=== PATIENT | male | born 1945 | race Caucasian/White ===

== ENCOUNTER 2018-01-26 12:43 | Observation (INO) | payer OTHER, MEDICARE, BC ==
--- NOTE | 2018-01-26 12:54 | ER Document Report ---
ED Medical Screen (RME) - General Chief Complaint: S/S of Possible Stroke Stated Complaint: VOMITING,CONFUSION,SLURRED SPEECH Time Seen by Provider: 01/26/18 12:52 Notes: pt was talking on phone to daughter about 1 hr ago when she noticed he could not complete sentences. Pt still has trouble articulating. no other deficits appreciated on brief CN/neuro exam. TRAVEL OUTSIDE OF THE [place] IN LAST 30 DAYS: No Physical Exam - Vital signs Vitals: Temp Pulse Resp BP Pulse Ox 97.7 F 74 16 143/86 H 97 01/26/18 12:49 01/26/18 12:49 01/26/18 12:49 01/26/18 12:49 01/26/18 12:49 Course - Vital Signs Vital signs: Temp Pulse Resp BP Pulse Ox 97.7 F 74 16 143/86 H 97 01/26/18 12:49 01/26/18 12:49 01/26/18 12:49 01/26/18 12:49 01/26/18 12:49
--- NOTE | 2018-01-26 13:09 | RADIOLOGY REPORT (SQ) ---
EXAM DESCRIPTION: CT HEAD WITHOUT COMPLETED DATE/TIME: 01/26/2018 12:58 pm REASON FOR STUDY: new onset ams COMPARISON: None. TECHNIQUE: Axial images acquired through the brain without intravenous contrast. Images reviewed wi th bone, brain and subdural windows. Images stored on PACS. All CT scanners at this facility use dose modulation, iterative reconstruction, and/or weight based d osing when appropriate to reduce radiation dose to as low as reasonably achievable (ALARA). [facility]: Dose Right [facility]: CareDose [facility]: Dose Right [facility]: Teradose 4D [facility]: Telligent Systems RADIATION DOSE: mGy. LIMITATIONS: None. FINDINGS: VENTRICLES: Normal size and contour. CEREBRUM: No masses. No hemorrhage. No midline shift. No evidence for acute infarction. Normal gra y/white matter differentiation. No areas of low density in the white matter. CEREBELLUM: No masses. No hemorrhage. No alteration of density. No evidence for acute infarction. EXTRAAXIAL SPACES: No fluid collections. No masses. ORBITS AND GLOBE: No intra- or extraconal masses. Normal contour of globe without masses. CALVARIUM: No fracture. PARANASAL SINUSES: No fluid or mucosal thickening. SOFT TISSUES: No mass or hematoma. OTHER: No other significant finding. IMPRESSION: NORMAL BRAIN CT WITHOUT CONTRAST. EVIDENCE OF ACUTE STROKE: NO. COMMENT: Findings were discussed with the ordering physician at 1304 hours on this date. Quality ID # [id number]: Final reports with documentation of one or more dose reduction techniques (e.g., Au tomated exposure control, adjustment of the mA and/or kV according to patient size, use of iterative reconstruction technique) TECHNICAL DOCUMENTATION: JOB ID: [id number] [employer]- All Rights Reserved Reading location - IP/workstation name: [email or web address]
--- NOTE | 2018-01-26 13:21 | RADIOLOGY REPORT (SQ) ---
EXAM DESCRIPTION: CHEST SINGLE VIEW COMPLETED DATE/TIME: 01/26/2018 1:10 pm REASON FOR STUDY: STROKE ALERT COMPARISON: None. EXAM PARAMETERS: NUMBER OF VIEWS: One view. TECHNIQUE: Single frontal radiographic view of the chest acquired. RADIATION DOSE: NA LIMITATIONS: Demographics mismatch warning displayed FINDINGS: LUNGS AND PLEURA: No opacities, masses or pneumothorax. No pleural effusion. MEDIASTINUM AND HILAR STRUCTURES: No masses. Contour normal. HEART AND VASCULAR STRUCTURES: Heart normal in size. Normal vasculature. BONES: No acute findings. HARDWARE: Sternotomy wires. OTHER: No other significant finding. IMPRESSION: NO ACUTE RADIOGRAPHIC FINDING IN THE CHEST. TECHNICAL DOCUMENTATION: JOB ID: [id number] [employer]- All Rights Reserved Reading location - IP/workstation name: [email or web address]
--- NOTE | 2018-01-26 13:24 | ER Document Report ---
ED General - General Chief Complaint: S/S of Possible Stroke Stated Complaint: VOMITING,CONFUSION,SLURRED SPEECH Time Seen by Provider: 01/26/18 12:52 Mode of Arrival: Ambulatory Information source: Patient, Relative Notes: 72-year-old male history of anxiety previous coronary artery disease presents with an episode of slurred speech and confusion. Patient was noted to be on the phone with his daughter and immediately had episodes which lasted approximately 20 minutes. TRAVEL OUTSIDE OF THE [place] IN LAST 30 DAYS: No - HPI Onset: Just prior to arrival Onset/Duration: Sudden Quality of pain: No pain Severity: Mild Pain Level: Denies Associated symptoms: Other Exacerbated by: Denies Relieved by: Denies Similar symptoms previously: No Recently seen / treated by doctor: No - Related Data Allergies/Adverse Reactions: No Known Allergies Allergy (Unverified 01/26/18 15:48) Past Medical History - Social History Smoking Status: Never Smoker Cigarette use (# per day): No Chew tobacco use (# tins/day): No Smoking Education Provided: No Family History: Reviewed & Not Pertinent Patient has suicidal ideation: No Patient has homicidal ideation: No Renal/ Medical History: Denies: Hx Peritoneal Dialysis Review of Systems - Review of Systems Notes: REVIEW OF SYSTEMS: CONSTITUTIONAL : Denies fever, chills, or sweats. Denies recent illness. EENT: Denies eye, ear, throat, or mouth pain or symptoms. Denies nasal or sinus congestion or discharge. Denies throat, tongue, or mouth swelling or difficulty swallowing. CARDIOVASCULAR: Denies chest pain. Denies palpitations or racing or irregular heart beat. Denies ankle edema. RESPIRATORY: Denies cough, cold, or chest congestion. Denies shortness of breath, difficulty breathing, or wheezing. GASTROINTESTINAL: Denies abdominal pain or distention. Denies nausea, vomiting , or diarrhea. Denies blood in vomitus, stools, or per rectum. Denies black, tarry stools. Denies constipation. GENITOURINARY: Denies difficulty urinating, painful urination, burning, frequency, blood in urine, or discharge. MUSCULOSKELETAL: Denies back or neck pain or stiffness. Denies joint pain or swelling. SKIN: Denies rash, lesions or sores. HEMATOLOGIC : Denies easy bruising or bleeding. LYMPHATIC: Denies swollen, enlarged glands. NEUROLOGICAL: Admits to slurred speech PSYCHIATRIC: Denies anxiety or stress. Denies depression, suicidal ideation, or homicidal ideation. ALL OTHER SYSTEMS REVIEWED AND NEGATIVE. Dictation was performed using [employer] voice recognition software PHYSICAL EXAMINATION: GENERAL: Well-appearing, well-nourished and in no acute distress. HEAD: Atraumatic, normocephalic. EYES: Pupils equal round and reactive to light, extraocular movements intact, sclera anicteric, conjunctiva are normal. ENT: Nares patent, oropharynx clear without exudates. Moist mucous membranes. NECK: Normal range of motion, supple without lymphadenopathy LUNGS: Breath sounds clear to auscultation bilaterally and equal. No wheezes rales or rhonchi. HEART: Regular rate and rhythm without murmurs ABDOMEN: Soft, nontender, nondistended abdomen. No guarding, no rebound. No masses appreciated. Musculoskeletal: Normal range of motion, no pitting or edema. No cyanosis. NEUROLOGICAL: Cranial nerves grossly intact. Normal speech, normal gait. Normal sensory, motor exams PSYCH: Normal mood, normal affect. SKIN: Warm, Dry, normal turgor, no rashes or lesions noted. Physical Exam - Vital signs Vitals: Temp Pulse Resp BP Pulse Ox 97.7 F 74 16 143/86 H 97 01/26/18 12:49 01/26/18 12:49 01/26/18 12:49 01/26/18 12:49 01/26/18 12:49 Course - Re-evaluation Re-evalutation: 01/26/18 16:49 Patient's presentation I believe is more consistent with a panic attack given that intermittently he will have slurred speech when he is getting anxious, however I cannot rule out a TIA at this time patient will be observed to the hospitalist service - Vital Signs Vital signs: Temp Pulse Resp BP Pulse Ox 97.7 F 68 14 159/89 H 98 01/26/18 12:49 01/26/18 13:14 01/26/18 13:14 01/26/18 13:14 01/26/18 13:14 - Laboratory Result Diagrams: 01/26/18 13:07 01/26/18 13:07 Laboratory results interpreted by me: 01/26/18 01/26/18 13:07 13:07 MCV 99 H MCH 34.0 H Glucose 112 H - Diagnostic Test Radiology reviewed: Image reviewed - no acute abnormality , report given to patient, Reports reviewed - EKG Interpretation by Me EKG shows normal: Sinus rhythm, [place], Intervals, QRS Complexes Discharge - Discharge Clinical Impression: Anxiety TIA (transient ischemic attack) Qualifiers: Transient cerebral ischemia type: unspecified Qualified Code(s): G45.9 - Transient cerebral ischemic attack, unspecified Condition: Stable Disposition: ADMITTED OBSERVATION Admitting Provider: Hospitalist Unit Admitted: [facility]
--- NOTE | 2018-01-26 13:25 | EKG REPORT ---
SEVERITY:- NORMAL ECG - SINUS RHYTHM : Confirmed by: Martin Hummel MD 26-Jan-2018 13:24:49
[2018-01-26 13:26] LABS: ABSOLUTE LYMPHOCYTES (AUTO) 2.1 10^3/uL (0.5-4.7); ABSOLUTE MONOCYTES (AUTO) 0.5 10^3/uL (0.1-1.4); ABSOLUTE NEUT (AUTO) 5.1 10^3/uL (1.7-8.2); BASOPHILS % (AUTO) 0.5 % (0-2); EOSINOPHILS % (AUTO) 0.2 % (0-6); HEMATOCRIT 44.2 % (37.9-51.0); HEMOGLOBIN 15.1 g/dL (13.5-17.0); LYMPHOCYTES % (AUTO) 26.7 % (13-45); MEAN CORPUSCULAR HGB CONC 34.2 g/dL (32.0-36.0); MEAN CORPUSCULAR VOLUME 99 fl (80-97); PLATELET COUNT 198 10^3/uL (150-450); RED BLOOD COUNT 4.46 10^6/uL (4.35-5.55); RED CELL DISTRIBUTION WIDTH 12.9 % (11.5-14.0); SEGMENTED NEUTROPHILS % (AUTO) 66.6 % (42-78); TOTAL CELLS COUNTED % (AUTO) 100 %; WHITE BLOOD COUNT 7.7 10^3/uL (4.0-10.5)
[2018-01-26 13:37] LABS: ALANINE AMINOTRANSFERASE 57 U/L (21-72); ALBUMIN 4.1 g/dL (3.5-5.0); ALKALINE PHOSPHATASE 61 U/L (38-126); ANION GAP 9 (5-19); ASPARTATE AMINO TRANSFERASE 33 U/L (17-59); BILIRUBIN,DIRECT 0.2 mg/dL (0.0-0.4); BILIRUBIN,TOTAL 0.7 mg/dL (0.2-1.3); BLOOD UREA NITROGEN 15 mg/dL (7-20); CALCIUM 9.1 mg/dL (8.4-10.2); CARBON DIOXIDE 26 mmol/L (22-30); CHLORIDE 104 mmol/L (98-107); GLUCOSE 112 mg/dL (75-110); POTASSIUM 4.2 mmol/L (3.6-5.0); SODIUM 139.4 mmol/L (137-145); TOTAL PROTEIN 6.4 g/dL (6.3-8.2)
[2018-01-26] MEDS ORDERED: TEMAZEPAM 15 MG CAPSULE PO PRN (17:32)
[2018-01-26] MEDS ORDERED: ONDANSETRON HCL INJ/PF 4 MG/2 ML SDV IV PRN (17:32)
[2018-01-26] MEDS ORDERED: DOCUSATE SODIUM 100 MG CAPSULE PO PRN (17:32)
[2018-01-26] MEDS ORDERED: ACETAMINOPHEN 325 MG TABLET PO PRN (17:32)
--- NOTE | 2018-01-26 18:09 | PDOC H&P ---
History of Present Illness Admission Date/PCP: 01/26/18 14:42 Primary CARE physician: Dr. Gamez in [place] History of Present Illness: GAGE OLIVAS is a 72 year old male who earlier today was talking to his daughter on the phone. He abruptly developed garbled speech and became quite confused. He could not finish his conversation with his daughter. By the time his daughter arrived at the house about 20 minutes later his symptoms were resolving. He was brought to the emergency room for further evaluation. The patient has an extensive history of coronary artery disease. He had an TX in 2004 with stent placement. He continued to have problems and in 2005 underwent a CABG. Postoperatively he developed atrial fibrillation but later had an ablation. In addition he has known hypertension, hyperlipidemia, borderline diabetes and anxiety. Past Medical History Cardiac Medical History: Reports: Atrial Fibrillation, Coronary Artery Disease, Myocardial Infarction, Hyperlipidema, Hypertension Cardiac History Note: CABG in 2005. I am not sure how many vessels were bypassed. He cannot recall Pulmonary Medical History: Denies: Asthma, Chronic Obstructive Pulmonary Disease (COPD), Pneumonia, Respiratory Failure EENT Medical History: Reports: Eyes - Patient had shrapnel in his eye from the [place] War. Surgery was performe Neurological Medical History: Reports: None, Other - Other than his new strokelike symptoms today. Endocrine Medical History: Reports: Diabetes Mellitus Type 2 - He has diet controlled diabetes. Currently not on any medication, Other Renal/ Medical History: Reports: None Denies: Chronic Kidney Disease, Nephrolithiasis Malignancy Medical History: Reports: None GI Medical History: Reports: None Musculoskeltal Medical History: Reports: None Skin Medical History: Reports: None Psychiatric Medical History: Reports: General Anxiety Disorder Denies: Alcohol Dependency, Bipolar Disorder, Depression, Substance Abuse, Tobacco Dependency Traumatic Medical History: Reports: Other - Shrapnel to the eye Hematology: Reports: None Denies: Anemia Infectious Medical History: Reports: None Past Surgical History Past Surgical History: Reports: Cardiac Catheterization, Coronary Artery Bypass Graft, Coronary Stent, Other - Cardiac ablation and right eye surgery. L4-L5 discectomy and fusion Social History Smoking Status: Never Smoker Frequency of Alcohol Use: Social Drugs: None Hx Prescription Drug Abuse: No - Advance Directive Resuscitation Status: Full Code Family History Family History: CAD, CVA, DM, Hypertension Parental Family History Reviewed: Yes Children Family History Reviewed: Yes Sibling(s) Family History Reviewed.: Yes Medication/Allergy Home Medications: Aspirin [Aspirin EC] 81 mg PO DAILY 01/26/18 Diazepam [Valium 5 mg Tablet] 10 mg PO BIDP PRN 01/26/18 Lisinopril [Prinivil 10 mg Tablet] 10 mg PO DAILY 01/26/18 Metoprolol Tartrate [Lopressor 50 mg Tablet] 50 mg PO DAILY 01/26/18 Rosuvastatin Calcium [Crestor 5 mg Tablet] 2.5 mg PO Q2D 01/26/18 Allergies/Adverse Reactions: No Known Allergies Allergy (Unverified 01/26/18 15:48) Review of Systems Constitutional: PRESENT: chills, fatigue, weakness. ABSENT: fever(s), headache( s), night sweats, weight gain, weight loss Eyes: ABSENT: visual disturbances Ears: ABSENT: hearing changes Nose, Mouth, and Throat: ABSENT: headache(s), sore throat, vertigo Cardiovascular: PRESENT: chest pain - Fairly severe chest pain on Wednesday associated with vomiting. Gastrointestinal: PRESENT: abdominal pain, nausea, vomiting - The patient had chest pain and abdominal pain associated with nausea and vomiting on Wednesday and Wednesday. This is since resolved. He did not have diarrhea. He did notice one black stool however he had taken some Pepto-Bismol Genitourinary: PRESENT: nocturia. ABSENT: difficulty urinating, dysuria, hematuria Musculoskeletal: ABSENT: back pain, joint swelling, muscle weakness - Is Integumentary: ABSENT: diaphoresis Neurological: PRESENT: abnormal speech, confusion - Garbled speech and expressive aphasia associated with confusion that is since totally resolved. Psychiatric: PRESENT: anxiety, depression Endocrine: ABSENT: cold intolerance, heat intolerance, polydipsia, polyuria Hematologic/Lymphatic: ABSENT: easy bleeding, easy bruising Allergic/Immunologic: ABSENT: seasonal rhinorrhea Physical Exam Vital Signs: Temp Pulse Resp BP Pulse Ox 97.8 F 70 19 121/63 99 01/26/18 16:50 01/26/18 16:50 01/26/18 16:50 01/26/18 16:50 01/26/18 16:50 Intake & Output 01/25/18 01/26/18 01/27/18 06:59 06:59 06:59 Weight 80.1 kg General appearance: PRESENT: no acute distress, cooperative, well-developed, well-nourished Head exam: PRESENT: atraumatic, normocephalic Eye exam: PRESENT: conjunctiva pink, EOMI, PERRLA. ABSENT: scleral icterus Ear exam: PRESENT: normal external ear exam Mouth exam: PRESENT: moist, tongue midline Neck exam: ABSENT: carotid bruit, JVD, lymphadenopathy, thyromegaly Respiratory exam: PRESENT: clear to auscultation vandana. ABSENT: rales, rhonchi, wheezes Cardiovascular exam: PRESENT: RRR. ABSENT: diastolic murmur, rubs, systolic murmur Pulses: PRESENT: normal dorsalis pedis pul Vascular exam: PRESENT: normal capillary refill GI/Abdominal exam: PRESENT: normal bowel sounds, soft. ABSENT: distended, guarding, mass, organolmegaly, rebound, tenderness Rectal exam: PRESENT: deferred, black stool Extremities exam: PRESENT: full ROM. ABSENT: calf tenderness, clubbing, pedal edema Musculoskeletal exam: PRESENT: ambulatory, full ROM Neurological exam: PRESENT: alert, awake, oriented to person, oriented to place , oriented to time, oriented to situation, CN II-XII grossly intact. ABSENT: motor sensory deficit Psychiatric exam: PRESENT: anxious, appropriate affect. ABSENT: flat affect, homicidal ideation, suicidal ideation Skin exam: PRESENT: dry, intact, warm. ABSENT: cyanosis, rash Results Impressions: Chest X-Ray 01/26/18 00:00 IMPRESSION: NO ACUTE RADIOGRAPHIC FINDING IN THE CHEST. Head CT 01/26/18 12:52 IMPRESSION: NORMAL BRAIN CT WITHOUT CONTRAST. EVIDENCE OF ACUTE STROKE: NO. Assessment & Plan - Diagnosis (1) TIA (transient ischemic attack) Qualifiers: Transient cerebral ischemia type: unspecified Qualified Code(s): G45.9 - Transient cerebral ischemic attack, unspecified Is this a current diagnosis for this admission?: Yes Plan: I am going to increase his aspirin to 325 mg. We are going to start atorvastatin at 80 mg daily. we will do a full stroke workup. The patient clearly has atherosclerotic disease with a history of severe artery disease and CABG in the past. I am going to obtain an MRI of the brain, carotid Dopplers as well as a 2D echocardiogram. I suspect this is a TIA as his symptoms are totally resolved. Per protocol he will be evaluated by PT, OT and speech. (2) Coronary artery disease Is this a current diagnosis for this admission?: Yes Plan: The patient is status post CABG in 2005. He is on appropriate cardiac medications. He did have an episode on Wednesday and Wednesday rather severe chest pain associated with nausea and vomiting.He also was having abdominal pain at this time as well. I am going to trend his serial troponins overnight. We will keep him on a remote monitor. I will have cardiology take a look at him as well. (3) Atrial fibrillation Is this a current diagnosis for this admission?: Yes Plan: Patient had a history of atrial fibrillation in the status post ablation at some point after his CABG in 2005. He has had no further issues since that time. The patient did have a TIA today. We will keep him on a remote monitor. On exam today he sounds a little irregular. EKG at the time of admission revealed a sinus rhythm. He could be having PVCs. Currently not on any anticoagulation. I will get an EKG in the morning. (4) Hypertension Is this a current diagnosis for this admission?: Yes Plan: Currently well controlled. Continue lisinopril (5) Hyperlipidemia Is this a current diagnosis for this admission?: Yes Plan: He has been on low-dose Crestor. I am going to place him on high-dose atorvastatin at 80 mg daily for now. I will get a lipid panel in the morning. (6) Diabetes mellitus Is this a current diagnosis for this admission?: Yes Plan: He has diet controlled diabetes mellitus. I will get a hemoglobin A1c in the morning (7) Anxiety Is this a current diagnosis for this admission?: Yes Plan: Anxiety the patient does admit to increased anxiety and stress. He will continue his home dose of Valium. (8) Full code status Is this a current diagnosis for this admission?: Yes - Time Time Spent: 50 to 70 Minutes - Inpatient Certification Medical Necessity: Other - The patient's symptoms have already resolved. I suspect that his hospitalization will span less than 2 midnights. He will be placed in observation and hopefully can be discharged tomorrow afternoon
[2018-01-26] MEDS ORDERED: ENOXAPARIN SODIUM INJ 40 MG/0.4 ML DISP.SYRIN SUBCUT ONE (19:00)
--- NOTE | 2018-01-26 19:49 | RADIOLOGY REPORT (SQ) ---
EXAM DESCRIPTION: MRI HEAD WITHOUT COMPLETED DATE/TIME: 01/26/2018 7:27 pm REASON FOR STUDY: tia, rule out cva COMPARISON: CT dated 01/26/2018. TECHNIQUE: Multiplanar imaging includes non-contrasted T1, T2, FLAIR, and Diffusion with ADC map seq uences. Images stored on PACS. LIMITATIONS: None. FINDINGS: ANATOMY: No anomalies. Normal vascular flow voids. Pituitary fossa normal. CSF SPACES: Normal in size and contour. No hemorrhage. CEREBRUM: A few high-signal intensity lesions scattered throughout the white matter on FLAIR imaging with distribution suggesting chronic micro-vascular ischemic change. Sulci and gyri normal in size a nd contour. No evidence of hemorrhage, mass or extraaxial fluid collection. POSTERIOR FOSSA: No signal alteration. No hemorrhage. No edema, masses or mass effect. Internal lalitha tory canals, cerebello-pontine angles, mastoids normal. DIFFUSION: Questionable small focal areas of restricted diffusion on the cortex of the left insular c ortex and left temporal lobe (series 4, image 16). ORBITS: No masses. Globes normal. PARANASAL SINUSES: No fluid levels. Mucosa normal. OTHER: No other significant finding. IMPRESSION: MINIMAL MICROVASCULAR ISCHEMIC CHANGE. POSSIBLE SMALL AREAS OF RESTRICTED DIFFUSION IN THE LEFT INSULAR CORTEX AND LEFT TEMPORAL LOBE CORTEX. DIFFICULT TO DETERMINE IF THIS IS ARTIFACT OR COULD BE AREAS OF RECENT INFARCTION. EVIDENCE OF ACUTE STROKE: POSSIBLE. LEFT MCA TECHNICAL DOCUMENTATION: JOB ID: [id number] [employer]- All Rights Reserved Reading location - IP/workstation name: [email or web address]
[2018-01-26] MEDS ORDERED: MAG HYDROX/AL HYDROX/SIMETH SUSP 30 ML UDCUP PO PRN (20:34)
[2018-01-26 20:49] LABS: CREATINE KINASE MB 0.56 ng/mL (<4.55)
[2018-01-26 20:52] LABS: TROPONIN I < 0.012 ng/mL
[2018-01-26] MEDS ORDERED: ATORVASTATIN CALCIUM 80 MG TABLET PO SCH (22:00)
[2018-01-27 02:52] LABS: ABSOLUTE BASOPHILS # (AUTO) 0.1 10^3/uL (0.0-0.2); ABSOLUTE LYMPHOCYTES (AUTO) 2.3 10^3/uL (0.5-4.7); ABSOLUTE MONOCYTES (AUTO) 0.6 10^3/uL (0.1-1.4); ABSOLUTE NEUT (AUTO) 4.1 10^3/uL (1.7-8.2); BASOPHILS % (AUTO) 0.8 % (0-2); EOSINOPHILS % (AUTO) 0.6 % (0-6); HEMATOCRIT 42.1 % (37.9-51.0); HEMOGLOBIN 14.5 g/dL (13.5-17.0); LYMPHOCYTES % (AUTO) 32.2 % (13-45); MEAN CORPUSCULAR HEMOGLOBIN 34.3 pg (27.0-33.4); MEAN CORPUSCULAR HGB CONC 34.5 g/dL (32.0-36.0); MEAN CORPUSCULAR VOLUME 99 fl (80-97); MONOCYTES % (AUTO) 8.3 % (3-13); PLATELET COUNT 159 10^3/uL (150-450); RED BLOOD COUNT 4.24 10^6/uL (4.35-5.55); RED CELL DISTRIBUTION WIDTH 12.9 % (11.5-14.0); SEGMENTED NEUTROPHILS % (AUTO) 58.1 % (42-78); TOTAL CELLS COUNTED % (AUTO) 100 %; WHITE BLOOD COUNT 7.1 10^3/uL (4.0-10.5)
[2018-01-27 03:03] LABS: APPEARANCE,URINE CLEAR; BILIRUBIN,URINE NEGATIVE (NEGATIVE); COLOR,URINE YELLOW; GLUCOSE, URINE NEGATIVE (NEGATIVE); KETONES,URINE NEGATIVE (NEGATIVE); LEUKOCYTE ESTERASE,URINE NEGATIVE (NEGATIVE); NITRITE,URINE NEGATIVE (NEGATIVE); PROTEIN,URINE NEGATIVE (NEGATIVE); URINE SPECIFIC GRAVITY 1.008
[2018-01-27 03:05] LABS: ANION GAP 7 (5-19); BLOOD UREA NITROGEN 13 mg/dL (7-20); CALCIUM 8.8 mg/dL (8.4-10.2); CARBON DIOXIDE 26 mmol/L (22-30); CHLORIDE 106 mmol/L (98-107); CHOLESTEROL 106.66 mg/dL (0-200); CREATINE KINASE 34 U/L (55-170); GLUCOSE 104 mg/dL (75-110); SODIUM 138.9 mmol/L (137-145); TRIGLYCERIDES 183 mg/dL (<150)
[2018-01-27 03:15] LABS: TROPONIN I < 0.012 ng/mL
[2018-01-27 03:16] LABS: DIRECT LDL 53 mg/dL (<100)
[2018-01-27 03:19] LABS: VLDL CHOLESTEROL 36.6 mg/dL (10-31)
[2018-01-27] MEDS ORDERED: LANSOPRAZOLE 30 MG TAB.RAP.DR PO SCH (06:00)
--- NOTE | 2018-01-27 07:26 | EKG REPORT ---
SEVERITY:- NORMAL ECG - SINUS RHYTHM : Confirmed by: Martin Hummel MD 27-Jan-2018 07:26:25
[2018-01-27] MEDS ORDERED: LISINOPRIL 10 MG TABLET PO SCH (10:00)
[2018-01-27] MEDS ORDERED: ENOXAPARIN SODIUM INJ 40 MG/0.4 ML DISP.SYRIN SUBCUT SCH (10:00)
[2018-01-27] MEDS ORDERED: ASPIRIN 325 MG TABLET, ENT COATED PO SCH ×2 (10:00→15:08)
[2018-01-27] MEDS ORDERED: METOPROLOL TARTRATE 50 MG TABLET PO SCH (10:00)
[2018-01-27 10:55] LABS: CREATINE KINASE MB 0.35 ng/mL (<4.55)
[2018-01-27 10:57] LABS: TROPONIN I < 0.012 ng/mL
--- NOTE | 2018-01-27 14:31 | RADIOLOGY REPORT (SQ) ---
EXAM DESCRIPTION: CAROTID DOPPLER COMPLETED DATE/TIME: 01/27/2018 2:02 pm REASON FOR STUDY: TIA/CVA, hx CAD COMPARISON: None. TECHNIQUE: Grayscale ultrasound, Doppler velocity and spectra, and color Doppler images acquired of the extra-cranial carotid and vertebral arteries. Images stored on PACS. LIMITATIONS: None. FINDINGS: RIGHT CAROTID CCA Velocities: Within normal limits. ICA Velocities Peak systolic 0.87 m/s. End diastolic 0.31 m/s. Proximal ICA/CCA peak systolic ratio 1.1. Spectra normal. No significant plaque. LEFT CAROTID CCA Velocities: Within normal limits. ICA Velocities Peak systolic 0.82 m/s. End diastolic 0.33 m/s. Proximal ICA/CCA peak systolic ratio 0.8. Spectra normal. No significant plaque. VERTEBRAL ARTERIES: Antegrade flow. Normal waveforms. SUBCLAVIAN ARTERIES: No finding. OTHER: No other significant finding. IMPRESSION: NO HEMODYNAMICALLY SIGNIFICANT STENOSIS. COMMENT: Quality ID #[id number]: Velocity criteria are extrapolated from the diameter data as defined by t he Society of Radiologists in Ultrasound Consensus Conference. Radiology 2003: 229; 340-346. TECHNICAL DOCUMENTATION: JOB ID: [id number]- All Rights Reserved Reading location - IP/workstation name: [email or web address]
--- NOTE | 2018-01-27 15:06 | PDOC CONSULTATION ---
Consultation Consult Date: 01/26/18 Attending physician:: HUGO PIEDRA Consult reason:: Coronary artery disease History of Present Illness Admission Date/PCP: 01/26/18 14:42 Patient complains of: Coronary artery disease, speech difficulty History of Present Illness: GAGE OLIVAS is a 72 year old male who earlier today was talking to his daughter on the phone. He abruptly developed garbled speech and became quite confused. He could not finish his conversation with his daughter. By the time his daughter arrived at the house about 20 minutes later his symptoms were resolving. He was brought to the emergency room for further evaluation. The patient has an extensive history of coronary artery disease. He had an GA in 2004 with stent placement. He continued to have problems and in 2005 underwent a CABG. Postoperatively he developed atrial fibrillation but later had an ablation. In addition he has known hypertension, hyperlipidemia, borderline diabetes and anxiety. This history was reviewed and confirmed. Past Medical History Cardiac Medical History: Reports: Atrial Fibrillation, Coronary Artery Disease, Myocardial Infarction, Hyperlipidema, Hypertension Pulmonary Medical History: Denies: Asthma, Chronic Obstructive Pulmonary Disease (COPD), Pneumonia, Respiratory Failure EENT Medical History: Reports: Eyes - Patient had shrapnel in his eye from the [place] War. Surgery was performe Neurological Medical History: Reports: None, Other - Other than his new strokelike symptoms today. Endocrine Medical History: Reports: Diabetes Mellitus Type 2 - He has diet controlled diabetes. Currently not on any medication, Other Renal/ Medical History: Reports: None Denies: Chronic Kidney Disease, Nephrolithiasis Malignancy Medical History: Reports: None GI Medical History: Reports: None Musculoskeltal Medical History: Reports: None Skin Medical History: Reports: None Psychiatric Medical History: Reports: General Anxiety Disorder Denies: Alcohol Dependency, Bipolar Disorder, Depression, Substance Abuse, Tobacco Dependency Traumatic Medical History: Reports: Other - Shrapnel to the eye Hematology: Reports: None Denies: Anemia Infectious Medical History: Reports: None Past Surgical History Past Surgical History: Reports: Cardiac Catheterization, Coronary Artery Bypass Graft, Coronary Stent, Other - Cardiac ablation and right eye surgery. L4-L5 discectomy and fusion Social History Information Source: Patient Smoking Status: Never Smoker Frequency of Alcohol Use: Social Drugs: None Hx Prescription Drug Abuse: No - Advance Directive Resuscitation Status: Full Code Surrogate healthcare decision maker:: Patient's daughter in [place] is the surrogate decision-maker Family History Family History: CAD, CVA, DM, Hypertension Parental Family History Reviewed: Yes Children Family History Reviewed: Yes Sibling(s) Family History Reviewed.: Yes Medication/Allergy Home Medications: Aspirin [Aspirin EC] 81 mg PO DAILY 01/26/18 Diazepam [Valium 5 mg Tablet] 10 mg PO BIDP PRN 01/26/18 Lisinopril [Prinivil 10 mg Tablet] 10 mg PO DAILY 01/26/18 Metoprolol Tartrate [Lopressor 50 mg Tablet] 50 mg PO DAILY 01/26/18 Apixaban [Eliquis 5 mg Tablet] 5 mg PO Q12A #60 tablet 01/27/18 Atorvastatin Calcium [Lipitor 80 mg Tablet] 80 mg PO QHS #30 tablet 01/27/18 Allergies/Adverse Reactions: No Known Allergies Allergy (Unverified 01/26/18 15:48) Review of Systems Review of Systems: Please see history of present illness and past medical history as wall. Constitutional: No fever or chills reported. Head : No recent chronic headaches, recent head injury. Eyes: No recent eye pain, diplopia, redness, discharge, acute visual changes. Ears: No recent chronic ear pain, acute hearing loss, ear discharge. Oral cavity: No recent ulcerations, bleeding, oral cavity discomfort. Neck: No recent acute neck pain reported. Hematologic: No recent easy bruising or bleeding or hematologic malignancy reported. Lymphatic: No recent lymphatic malignancy, chronic lymphadenopathy reported yet Cardiovascular system review: See history of present illness. Respiratory system review: No recent chronic cough, hemoptysis, blood clots in the lungs reported. Mild Shortness of breath on exertion Gastrointestinal system review: Negative for any recent acute or chronic abdominal pain, hematemesis, melena, recent change in bowel habits. Genitourinary system review: No recent acute or chronic hematuria, flank pain, UTI etc. reported. Skin system review: Negative for any recent abnormal bruising, no rash, no pruritus reported. Neurologic: No prior history of strokes, mini strokes, seizure disorder. Admitted with possible TIA versus stroke Psychologic: No history of major psychosis or major depression reported. Musculoskeletal: Minor aches and pains reported. No acute joint swelling reported. Endocrine: No recent polyuria, polydipsia, recent heat or cold intolerance. Physical Exam Vital Signs: Temp Pulse Resp BP Pulse Ox 97.8 F 69 19 121/63 99 01/26/18 16:50 01/26/18 18:00 01/26/18 16:50 01/26/18 16:50 01/26/18 16:50 Intake & Output 01/25/18 01/26/18 01/27/18 06:59 06:59 06:59 Intake Total 10 Balance 10 Weight 80.1 kg Exam: GENERAL: well-nourished and in no acute distress. Alert and oriented x3 HEAD: Atraumatic, normocephalic. EYES: Pupils equal round and reactive to light, extraocular movements intact, sclera anicteric, conjunctiva are normal. ENT: TMs normal, nares patent, oropharynx clear without exudates. Moist mucous membranes. No oral ulcerations or bleeding gums noted NECK: supple without lymphadenopathy. Trachea is central. No cervical or axillary lymphadenopathy noted. Carotids are 2+, JVD WNL LUNGS: Respiration seems nonlabored, no significant accessory muscle action noted. Breath sounds clear to auscultation bilaterally and equal noted. No wheezes rales or rhonchi noted. No significant dullness noted on percussion. CHEST: Palpation of the chest wall shows no significant chest wall tenderness. No other significant abnormalities noted. 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 ABDOMEN: Soft, no significant tenderness appreciated, normoactive bowel sounds. No guarding, no rebound. No rigidity noted . No masses appreciated. EXTREMITIES: Pedal pulses are 1-2+, no calf tenderness noted. No clubbing or cyanosis. Negative pedal edema noted NEUROLOGICAL: Focused neurological exam showed no significant neurologic deficit. Normal speech, no focal weakness appreciated. PSYCH: Normal mood, normal affect. Judgment and insight within normal limits. SKIN: No significant ecchymosis, skin is noted to be warm. MUSCULOSKELETAL EXAM: No significant acute joint swelling noted. Results EKG Comments: Sinus rhythm, no acute ST-T wave changes noted Impressions: Chest X-Ray 01/26/18 00:00 IMPRESSION: NO ACUTE RADIOGRAPHIC FINDING IN THE CHEST. Head MRI 01/26/18 00:00 IMPRESSION: MINIMAL MICROVASCULAR ISCHEMIC CHANGE. POSSIBLE SMALL AREAS OF RESTRICTED DIFFUSION IN THE LEFT INSULAR CORTEX AND LEFT TEMPORAL LOBE CORTEX. DIFFICULT TO DETERMINE IF THIS IS ARTIFACT OR COULD BE AREAS OF RECENT INFARCTION. EVIDENCE OF ACUTE STROKE: POSSIBLE. LEFT MCA Head CT 01/26/18 12:52 IMPRESSION: NORMAL BRAIN CT WITHOUT CONTRAST. EVIDENCE OF ACUTE STROKE: NO. Assessment & Plan - Diagnosis (1) Cerebrovascular accident (CVA) Qualifiers: CVA mechanism: unspecified Qualified Code(s): I63.9 - Cerebral infarction, unspecified Is this a current diagnosis for this admission?: Yes (2) TIA (transient ischemic attack) Qualifiers: Transient cerebral ischemia type: unspecified Qualified Code(s): G45.9 - Transient cerebral ischemic attack, unspecified Is this a current diagnosis for this admission?: Yes (3) Anxiety Is this a current diagnosis for this admission?: Yes (4) Atrial fibrillation Qualifiers: Atrial fibrillation type: unspecified Qualified Code(s): I48.91 - Unspecified atrial fibrillation Is this a current diagnosis for this admission?: Yes (5) Coronary artery disease Qualifiers: Coronary Disease-Associated Artery/Lesion type: unspecified vessel or lesion type [place] vs. transplanted heart: [place] heart Associated angina: angina presence unspecified Qualified Code(s): I25.10 - Atherosclerotic heart disease of [place] coronary artery without angina pectoris Is this a current diagnosis for this admission?: Yes (6) Diabetes mellitus Qualifiers: Diabetes mellitus type: type 2 Diabetes mellitus long term care administrator insulin use: unspecified long term care administrator insulin use status Diabetes mellitus complication status : with unspecified complications Qualified Code(s): E11.8 - Type 2 diabetes mellitus with unspecified complications Is this a current diagnosis for this admission?: Yes (7) Hyperlipidemia Qualifiers: Hyperlipidemia type: unspecified Qualified Code(s): E78.5 - Hyperlipidemia , unspecified Is this a current diagnosis for this admission?: Yes (8) Hypertension Qualifiers: Hypertension type: essential hypertension Qualified Code(s): I10 - Essential (primary) hypertension Is this a current diagnosis for this admission?: Yes - Notes Notes: Cerebrovascular accident: This is strongly suspected clinically. Patient has prior history of atrial fibrillation. Patient will benefit from going on newer anticoagulants such as Eliquis. Patient of course would benefit from statin and good control of blood pressure. Transient ischemic attack: This is also suspected. Agree with obtaining a 2D echocardiogram and carotid duplex. Coronary artery disease: Currently stable. Continue with current regimen which should include statin, low-dose aspirin, beta-alexandr and ISSAC inhibitor/ARB. Hypertension: Currently is stable. ISSAC inhibitor and beta-alexandr are preferred medication. Hyperlipidemia: Continue statin therapy. LDL goal should be less than 70 in view of recent stroke and also coronary artery disease. Diabetes: May need to address this further. I did not see any medications for diabetes. Will need to talk to patient regarding this tomorrow. Prolonged cardiac event monitoring and be considered as an outpatient. - Time Time Spent: 30 to 50 Minutes - CODE STATUS was discussed, patient remains full code. Surrogate decision-maker patient's daughter in [place]. Multiple medical problems were addressed. More than 50% of the time spent coordinating care, discussing management plans with involved caregivers. Management plans discussed with involved personnels. Medical decision making was of moderate to high complexity, patient's has multiple comorbidities. Medications reviewed and adjusted accordingly: Yes
--- NOTE | 2018-01-27 16:37 | PDOC DISCHARGE SUMMARY ---
General - Admit/Disc Date/PCP Admission Date/Primary Care Provider: 01/26/18 14:42 Dr. Gonzalez has been assigned to be his new primary care provider at the time of discharge Dr. Huber from the [facility] in [place] who is agreed to see him from a cardiology standpoint. Discharge Date: 01/27/18 - Discharge Diagnosis (1) Cerebrovascular accident (CVA) Is this a current diagnosis for this admission?: Yes Summary: The patient had an episode of garbled speech and confusion which lasted approximately 20 minutes. Subsequently resolved with no residual deficits. CT of the brain was negative at the time of admission. He did have an MRI of the brain which revealed a possible acute CVA and then MCA distribution. The radiologist could not rule out whether this was artifact. He was evaluated by cardiology due to his history of atrial fibrillation and coronary artery disease. The recommendation was to start Eliquis. He will continue on antiplatelet therapy with 81 mg of aspirin. He has been started on atorvastatin 80 mg daily. (2) Coronary artery disease Is this a current diagnosis for this admission?: Yes Summary: History of coronary artery disease status post stent placement followed by a CABG a year later. This was in 2005. He wants to get established with cardiology here in [place]. He was evaluated by Dr. Gimenez here in the hospital who reviewed his echocardiogram. The patient has normal left ventricular function and no acute abnormalities were noted. He would like to establish locally with a maintenance technician 2nd shift as he plans to spend at least half the year in the [place] area. Dr. Chan is graciously agreed to see the patient on February 16. (3) Atrial fibrillation Is this a current diagnosis for this admission?: Yes (4) Hypertension Is this a current diagnosis for this admission?: Yes Summary: Continue beta-alexandr and ISSAC inhibitor. (5) Hyperlipidemia Is this a current diagnosis for this admission?: Yes Summary: His low-dose statin medication was stopped and he has been placed on atorvastatin 80 mg once daily. (6) Diabetes mellitus Is this a current diagnosis for this admission?: Yes Summary: Diet-controlled diabetes. Hemoglobin A1c was 5.3 (7) Anxiety Is this a current diagnosis for this admission?: Yes Summary: He will resume his home regimen (8) Full code status Is this a current diagnosis for this admission?: Yes - Additional Information Resuscitation Status: Full Code Discharge Diet: Cardiac Discharge Activity: Activity As Tolerated, Balance Activity w/Rest, Slowly Increase Activity Prescriptions: Atorvastatin Calcium [Lipitor 80 mg Tablet] 80 mg PO QHS #30 tablet Apixaban [Eliquis 5 mg Tablet] 5 mg PO Q12A #60 tablet Home Medications: Aspirin [Aspirin EC] 81 mg PO DAILY 01/26/18 Diazepam [Valium 5 mg Tablet] 10 mg PO BIDP PRN 01/26/18 Lisinopril [Prinivil 10 mg Tablet] 10 mg PO DAILY 01/26/18 Metoprolol Tartrate [Lopressor 50 mg Tablet] 50 mg PO DAILY 01/26/18 Apixaban [Eliquis 5 mg Tablet] 5 mg PO Q12A #60 tablet 01/27/18 Atorvastatin Calcium [Lipitor 80 mg Tablet] 80 mg PO QHS #30 tablet 01/27/18 History of Present Illness History of Present Illness: GAGE OLIVAS is a 72 year old male who earlier today was talking to his daughter on the phone. He abruptly developed garbled speech and became quite confused. He could not finish his conversation with his daughter. By the time his daughter arrived at the house about 20 minutes later his symptoms were resolving. He was brought to the emergency room for further evaluation. The patient has an extensive history of coronary artery disease. He had an [place] in 2004 with stent placement. He continued to have problems and in 2005 underwent a CABG. Postoperatively he developed atrial fibrillation but later had an ablation. He has had no episodes of atrial fibrillation that he is aware of since that time. In addition he has known hypertension, hyperlipidemia, borderline diabetes and anxiety. Hospital Course Hospital Course: The patient was placed in observation in the hospital. His serial troponins remained negative. He had a 2D echocardiogram. The final results have not been transcribed however I did speak to Dr. Gimenez who indicates that he has normal LV function and no abnormalities were noted. He had carotid Dopplers performed which revealed no evidence of hemodynamically significant stenosis. MRI of the brain shows an area concerning for possible infarct. This area of infarct is in an MCA distribution. The radiologist did note that it could be artifact. Dr. Gimenez did see the patient. He is concerned the patient may be having issues with atrial fibrillation and has recommended initiating anticoagulation. The patient has been started on Eliquis. He will continue his low-dose aspirin, beta-alexandr, ISSAC inhibitor and increased dose of statin medication. The patient plans to live in the [place] area at least 6 months out of the year. He does have a good team of doctors in [place]. He has been some assigned a new primary care provider at discharge and we have set him up to follow-up at the [facility] here in [place]. At this point maximum hospital benefit has been reached. The patient will be discharged home today in stable condition. Physical Exam Vital Signs: Temp Pulse Resp BP Pulse Ox 97.8 F 60 17 128/79 H 100 01/27/18 11:41 01/27/18 11:41 01/27/18 11:41 01/27/18 11:41 01/27/18 11:41 Intake & Output 01/26/18 01/27/18 01/28/18 06:59 06:59 06:59 Intake Total 355 800 Output Total 300 Balance 55 800 Weight 80.1 kg General appearance: PRESENT: no acute distress, well-developed, well-nourished Head exam: PRESENT: atraumatic, normocephalic Eye exam: PRESENT: conjunctiva pink, EOMI, PERRLA. ABSENT: scleral icterus Mouth exam: PRESENT: moist, tongue midline Neck exam: ABSENT: carotid bruit, JVD, lymphadenopathy, thyromegaly Respiratory exam: PRESENT: clear to auscultation vandana. ABSENT: rales, rhonchi, wheezes Cardiovascular exam: PRESENT: RRR. ABSENT: diastolic murmur, rubs, systolic murmur Pulses: PRESENT: normal dorsalis pedis pul Vascular exam: PRESENT: normal capillary refill GI/Abdominal exam: PRESENT: normal bowel sounds, soft. ABSENT: distended, guarding, mass, organolmegaly, rebound, tenderness Rectal exam: PRESENT: deferred Extremities exam: PRESENT: full ROM. ABSENT: calf tenderness, clubbing, pedal edema Neurological exam: PRESENT: alert, awake, oriented to person, oriented to place , oriented to time, oriented to situation, CN II-XII grossly intact. ABSENT: motor sensory deficit Psychiatric exam: PRESENT: appropriate affect, normal mood. ABSENT: homicidal ideation, suicidal ideation Skin exam: PRESENT: dry, intact, warm. ABSENT: cyanosis, rash Results Laboratory Results: 01/27/18 02:38 01/27/18 02:38 01/27/18 01/27/18 01/27/18 02:38 02:38 02:50 WBC 7.1 RBC 4.24 L Hgb 14.5 Hct 42.1 MCV 99 H MCH 34.3 H MCHC 34.5 RDW 12.9 Plt Count 159 Seg Neutrophils % 58.1 Lymphocytes % 32.2 Monocytes % 8.3 Eosinophils % 0.6 Basophils % 0.8 Absolute Neutrophils 4.1 Absolute Lymphocytes 2.3 Absolute Monocytes 0.6 Absolute Eosinophils 0.0 Absolute Basophils 0.1 Sodium 138.9 Potassium 4.0 Chloride 106 Carbon Dioxide 26 Anion Gap 7 BUN 13 Creatinine 0.87 Est GFR ( Amer) > 60 Est GFR (Non-Af Amer) > 60 Glucose 104 Calcium 8.8 Triglycerides 183 H Cholesterol 106.66 LDL Cholesterol Direct 53 VLDL Cholesterol 36.6 H HDL Cholesterol 36 L Urine Color YELLOW Urine Appearance CLEAR Urine pH 7.0 Ur Specific [place] 1.008 Urine Protein NEGATIVE Urine Glucose (UA) NEGATIVE Urine Ketones NEGATIVE Urine Blood NEGATIVE Urine Nitrite NEGATIVE Ur Leukocyte Esterase NEGATIVE Urine WBC (Auto) 0 Urine RBC (Auto) 0 01/26/18 01/26/18 01/27/18 20:10 20:10 02:38 Creatine Kinase 40 L CK-MB (CK-2) 0.56 0.40 Troponin I < 0.012 < 0.012 01/27/18 01/27/18 01/27/18 02:38 09:36 09:36 Creatine Kinase 34 L 29 L CK-MB (CK-2) 0.35 Troponin I < 0.012 Impressions: Chest X-Ray 01/26/18 00:00 IMPRESSION: NO ACUTE RADIOGRAPHIC FINDING IN THE CHEST. Head MRI 01/26/18 00:00 IMPRESSION: MINIMAL MICROVASCULAR ISCHEMIC CHANGE. POSSIBLE SMALL AREAS OF RESTRICTED DIFFUSION IN THE LEFT INSULAR CORTEX AND LEFT TEMPORAL LOBE CORTEX. DIFFICULT TO DETERMINE IF THIS IS ARTIFACT OR COULD BE AREAS OF RECENT INFARCTION. EVIDENCE OF ACUTE STROKE: POSSIBLE. LEFT MCA Head CT 01/26/18 12:52 IMPRESSION: NORMAL BRAIN CT WITHOUT CONTRAST. EVIDENCE OF ACUTE STROKE: NO. Carotid Doppler Study 01/27/18 00:00 IMPRESSION: NO HEMODYNAMICALLY SIGNIFICANT STENOSIS. Qualifiers - * PATEINT BEING DISCHARGED WITH ANY OF THE FOLLOWING DIAGNOSIS?: Stroke VTE patient discharged on overlapping Therapy?: Yes Stroke Pt being discharged on Anti-thrombolytic therapy?: Yes Stroke Pt being discharged on Anti-coagulation therapy?: Yes Stroke Pt being discharged on Statins?: Yes Plan Time Spent: Greater than 30 Minutes
[2018-01-27 16:41] VITALS: BP 128/63
[2018-01-27] MEDS ORDERED: APIXABAN 5 MG TABLET PO SCH (18:00)
--- NOTE | 2018-01-27 18:32 | XCELERA REPORT ---
[address] [address] Transthoracic Echocardiogram Report Name: GAGE OLIVAS Age: 72 yrs Gender: Male : 1945 Patient Status: Inpatient Patient Location: [address] [place], [place] [address] Study Date: 01/27/2018 10:21 AM Height: 68 in Weight: 176 lb BSA: 1.9 m2 Procedure: A complete two-dimensional transthoracic echocardiogram was performed (2D, M-mode, spectral and color flow Doppler). The study was technically adequate with some images being suboptimal in quality. Reason For Study: TIA, CAD s/p CABG, chest pain Ordering Physician: SAILAJA HCAUDHRY Performed By: Rachael Leonard Interpretation Summary The left ventricular ejection fraction is normal. There is borderline concentric left ventricular hypertrophy. Doppler measurements suggest pseudonormalized left ventricular relaxation, which is associated with grade II/IV or mild to moderate diastolic dysfunction The left ventricle is grossly normal size. Wall motion cannot be accurately commented on, but no definite regional wall motion abnormalities noted. The right ventricular systolic function is normal. The left atrial size is normal. The right atrium is normal. There is a mild amount of mitral regurgitation There is no mitral valve stenosis. No aortic regurgitation is present. There is no aortic valve stenosis There is no tricuspid stenosis. No tricuspid regurgitation. The aortic root is not well visualized. The inferior vena cava was not well visualized There is no pericardial effusion. MMode/2D Measurements & Calculations RVDd: 2.9 cm LVIDd: 4.6 cm FS: 33.4 % Ao root diam: 3.5 cm IVSd: 0.94 cm LVIDs: 3.1 cm EDV(Teich): 97.5 ml LVPWd: 0.88 cmESV(Teich): 36.9 ml Ao root area: 9.7 cm2 EF(Teich): 62.1 % LA dimension: 3.2 cm LVOT diam: 2.0 cm LVOT area: 3.1 cm2 Doppler Measurements & Calculations MV E max davion: MV P1/2t max davion: Ao V2 max: LV V1 max P.5 cm/sec 88.7 cm/sec 133.2 cm/sec 6.1 mmHg MV A max davion: MV P1/2t: 50.8 msec Ao max PG: LV V1 max: 77.9 cm/sec MVA(P1/2t): 4.3 cm2 7.1 mmHg 123.4 cm/sec MV E/A: 1.1 MV dec slope: ELIAS(V,D): 2.9 cm2 511.8 cm/sec2 PA V2 max: 100.7 cm/sec PA max P.1 mmHg Left Ventricle The left ventricle is grossly normal size. There is borderline concentric left ventricular hypertrophy. The left ventricular ejection fraction is normal. Doppler measurements suggest pseudonormalized left ventricular relaxation, which is associated with grade II/IV or mild to moderate diastolic dysfunction. Wall motion cannot be accurately commented on, but no definite regional wall motion abnormalities noted. Right Ventricle The right ventricle is grossly normal size. There is normal right ventricular wall thickness. The right ventricular systolic function is normal. Atria The right atrium is normal. The left atrial size is normal. Interarterial septum not well visualized and not well dopplered. Cannot comment on ASD/PFO presence. Mitral Valve The mitral valve is grossly normal. There is no mitral valve stenosis. There is a mild amount of mitral regurgitation. Aortic Valve The aortic valve is grossly normal. There is no aortic valve stenosis. No aortic regurgitation is present. Tricuspid Valve The tricuspid valve is not well visualized, but is grossly normal. There is no tricuspid stenosis. No tricuspid regurgitation. Pulmonic Valve The pulmonic valve is not well visualized. Great Vessels The aortic root is not well visualized. The inferior vena cava was not well visualized. Effusions There is no pericardial effusion. Incidental Findings No definite cardiac source of CVA/TIA noted on this particular trans- thoracic study. Consider CHESTER if clinically indicated. May consider mobile cardiac telemetry monitoring (MCT) for ruling out transient AFIB. : SAILAJA CHAUDHRY > Mary Gimenez
--- NOTE | 2018-01-27 20:07 | PDOC PROGRESS REPORT ---
Subjective Progress Note for:: 01/27/18 Subjective:: Patient seems to be doing better. Speech difficulty has resolved. Pt is denying any chest arm or neck discomfort. Patient denying any PND, orthopnea. Patient denied any sustained palpitations, dizziness, syncope, near syncope. Patient denying any fever chills. Patient denying any other significant discomfort. Patient is maintaining sinus rhythm. Review of systems: Rest review of systems negative. Medications: Medications have been reviewed. Reason For Visit: TIA Physical Exam Vital Signs: Temp Pulse Resp BP Pulse Ox 98.1 F 70 17 128/63 H 97 01/27/18 16:31 01/27/18 16:31 01/27/18 16:31 01/27/18 16:31 01/27/18 16:31 Intake & Output 01/26/18 01/27/18 01/28/18 06:59 06:59 06:59 Intake Total 355 800 Output Total 300 Balance 55 800 Weight 80.1 kg Exam: GENERAL: well-nourished and in no acute distress. Alert and oriented x3 HEAD: Atraumatic, normocephalic. EYES: Pupils equal round and reactive to light, extraocular movements intact, sclera anicteric, conjunctiva are normal. ENT: TMs normal, nares patent, oropharynx clear without exudates. Moist mucous membranes. No oral ulcerations or bleeding gums noted NECK: supple without lymphadenopathy. Trachea is central. No cervical or axillary lymphadenopathy noted. Carotids are 2+, JVD WNL LUNGS: Respiration seems nonlabored, no significant accessory muscle action noted. Breath sounds clear to auscultation bilaterally and equal noted. No wheezes rales or rhonchi noted. No significant dullness noted on percussion. CHEST: Palpation of the chest wall shows no significant chest wall tenderness. No other significant abnormalities noted. 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 ABDOMEN: Soft, no significant tenderness appreciated, normoactive bowel sounds. No guarding, no rebound. No rigidity noted . No masses appreciated. EXTREMITIES: Pedal pulses are 1-2+, no calf tenderness noted. No clubbing or cyanosis. Negative pedal edema noted NEUROLOGICAL: Focused neurological exam showed no significant neurologic deficit. Normal speech, no focal weakness appreciated. PSYCH: Normal mood, normal affect. Judgment and insight within normal limits. SKIN: No significant ecchymosis, skin is noted to be warm. MUSCULOSKELETAL EXAM: No significant acute joint swelling noted. Results Laboratory Results: 01/27/18 02:38 01/27/18 02:38 01/27/18 01/27/18 01/27/18 02:38 02:38 02:50 WBC 7.1 RBC 4.24 L Hgb 14.5 Hct 42.1 MCV 99 H MCH 34.3 H MCHC 34.5 RDW 12.9 Plt Count 159 Seg Neutrophils % 58.1 Lymphocytes % 32.2 Monocytes % 8.3 Eosinophils % 0.6 Basophils % 0.8 Absolute Neutrophils 4.1 Absolute Lymphocytes 2.3 Absolute Monocytes 0.6 Absolute Eosinophils 0.0 Absolute Basophils 0.1 Sodium 138.9 Potassium 4.0 Chloride 106 Carbon Dioxide 26 Anion Gap 7 BUN 13 Creatinine 0.87 Est GFR ( Amer) > 60 Est GFR (Non-Af Amer) > 60 Glucose 104 Calcium 8.8 Triglycerides 183 H Cholesterol 106.66 LDL Cholesterol Direct 53 VLDL Cholesterol 36.6 H HDL Cholesterol 36 L Urine Color YELLOW Urine Appearance CLEAR Urine pH 7.0 Ur Specific [place] 1.008 Urine Protein NEGATIVE Urine Glucose (UA) NEGATIVE Urine Ketones NEGATIVE Urine Blood NEGATIVE Urine Nitrite NEGATIVE Ur Leukocyte Esterase NEGATIVE Urine WBC (Auto) 0 Urine RBC (Auto) 0 01/26/18 01/26/18 01/27/18 20:10 20:10 02:38 Creatine Kinase 40 L CK-MB (CK-2) 0.56 0.40 Troponin I < 0.012 < 0.012 01/27/18 01/27/18 01/27/18 02:38 09:36 09:36 Creatine Kinase 34 L 29 L CK-MB (CK-2) 0.35 Troponin I < 0.012 EKG Comments: Telemetry strip shows sinus rhythm without any sustained tachycardia or bradycardia. Impressions: Chest X-Ray 01/26/18 00:00 IMPRESSION: NO ACUTE RADIOGRAPHIC FINDING IN THE CHEST. Head MRI 01/26/18 00:00 IMPRESSION: MINIMAL MICROVASCULAR ISCHEMIC CHANGE. POSSIBLE SMALL AREAS OF RESTRICTED DIFFUSION IN THE LEFT INSULAR CORTEX AND LEFT TEMPORAL LOBE CORTEX. DIFFICULT TO DETERMINE IF THIS IS ARTIFACT OR COULD BE AREAS OF RECENT INFARCTION. EVIDENCE OF ACUTE STROKE: POSSIBLE. LEFT MCA Head CT 01/26/18 12:52 IMPRESSION: NORMAL BRAIN CT WITHOUT CONTRAST. EVIDENCE OF ACUTE STROKE: NO. Carotid Doppler Study 01/27/18 00:00 IMPRESSION: NO HEMODYNAMICALLY SIGNIFICANT STENOSIS. Assessment & Plan - Diagnosis (1) Cerebrovascular accident (CVA) Qualifiers: CVA mechanism: unspecified Qualified Code(s): I63.9 - Cerebral infarction, unspecified Is this a current diagnosis for this admission?: Yes (2) TIA (transient ischemic attack) Qualifiers: Transient cerebral ischemia type: unspecified Qualified Code(s): G45.9 - Transient cerebral ischemic attack, unspecified Is this a current diagnosis for this admission?: Yes (3) Anxiety Is this a current diagnosis for this admission?: Yes (4) Atrial fibrillation Qualifiers: Atrial fibrillation type: unspecified Qualified Code(s): I48.91 - Unspecified atrial fibrillation Is this a current diagnosis for this admission?: Yes (5) Coronary artery disease Qualifiers: Coronary Disease-Associated Artery/Lesion type: unspecified vessel or lesion type [place] vs. 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: Yes - Notes Notes: Cerebrovascular accident: This is strongly suspected clinically. Patient has prior history of atrial fibrillation. Patient will benefit from going on newer anticoagulants such as Eliquis. Patient of course would benefit from statin and good control of blood pressure. Also discussed with hospitalist. Recommend patient be placed on 5 mg p.o. twice daily. Feel that given patient' s underlying coronary artery disease, history of previous ablation therapy, there is increased risk of recurrence and some of these recurrences could be asymptomatic. Patient seems to have high chads score and relatively low has bled score. Therefore would be a good candidate for newer anticoagulants. Hypertension: Continue ISSAC inhibitor and beta-alexandr therapy. Hyperlipidemia: LDL goal is less than 70. Continue current statin therapy. Transient ischemic attack: This is also suspected. 2D echo and carotid duplex ultrasound study results were reviewed. No alternative cause apart from thromboembolic phenomenon felt likely. Coronary artery disease: Currently stable. Continue with current regimen which should include statin, low-dose aspirin, beta-alexandr and ISSAC inhibitor/ARB. Management plans were discussed and explained to the patient. - Time Time with patient: Greater than 35 minutes - CODE STATUS was discussed, patient remains full code. Surrogate decision-maker unchanged. Multiple medical problems were addressed. More than 50% of the time spent coordinating care, discussing management plans with involved caregivers. Management plans discussed with involved personnels. Medical decision making was of moderate to high complexity, patient's has multiple comorbidities. Medications reviewed and adjusted accordingly: Yes
== END 2018-01-27 17:17 | disposition home or self-care (01) ==
LOC: ER 12:43 → EH 14:42 → 3N 16:36
PROVIDERS: ADMIT Family Medicine; ATTEND Family Medicine
DX: I63.9 Cerebral infarction, unspecified (principal); I25.10 Atherosclerotic heart disease of native coronary artery without angina pectoris; I48.91 Unspecified atrial fibrillation; E78.5 Hyperlipidemia, unspecified; E11.8 Type 2 diabetes mellitus with unspecified complications; F41.9 Anxiety disorder, unspecified; I10 Essential (primary) hypertension; R68.83 Chills (without fever); R53.83 Other fatigue; R53.1 Weakness; R10.9 Unspecified abdominal pain; R11.2 Nausea with vomiting, unspecified; I25.2 Old myocardial infarction; F32.9 Major depressive disorder, single episode, unspecified; Z95.5 Presence of coronary angioplasty implant and graft; Z95.1 Presence of aortocoronary bypass graft; Z79.82 Long term (current) use of aspirin; Z79.02 Long term (current) use of antithrombotics/antiplatelets; Z98.890 Other specified postprocedural states; Z82.49 Family history of ischemic heart disease and other diseases of the circulatory system; Z82.3 Family history of stroke
CPT/HCPCS: 93005 ×2; 99285; 36415 ×2; 82553 ×2; 82550 ×2; 85025 ×2; 80048; 80053; 81001; 84484 ×2; 83036; 80061; 93306; 93880; 70551; 71045; 70450; 93010 ×2; 97163; G0378 ×3; J1650 ×2; J3490 ×2; G8978; G8979; G8980